=== PATIENT | female | born 2000 | race Caucasian/White ===

== ENCOUNTER 2021-11-06 18:18 | Emergency (ER) | payer OTHER ==
[~2021-11-06] VITALS: Ht 160 cm; Wt 59.0 kg
[2021-11-06 18:38] VITALS: BP 101/62
--- NOTE | 2021-11-06 18:43 | NUR ---
The patient bibs for "Rash X2wks NOT going away". Denies pain. Denies itching. Will continue to monitor the patient.
[2021-11-06] MEDS ORDERED: PRED50TA PO (19:02)
--- NOTE | 2021-11-06 19:06 | NUR ---
Patient discharged to home in stable condition. Written and verbal after care instructions given. Patient verbalizes understanding of instruction.
== END 2021-11-06 19:07 | disposition home or self-care (01) ==
LOC: ER 18:20
DX: T78.40XA Allergy, unspecified, initial encounter (principal); Z88.0 Allergy status to penicillin; Z79.52 Long term (current) use of systemic steroids; X58.XXXA Exposure to other specified factors, initial encounter

== ENCOUNTER 2021-11-14 14:33 | Emergency (ER) | payer OTHER ==
[~2021-11-14] VITALS: Ht 160 cm; Wt 70.3 kg
[~2021-11-14 14:33] MED LIST: PRED50TA PO
--- NOTE | 2021-11-14 14:43 | NUR ---
TO ER BED 10, GENERALIZED RASH, THROAT DISCOMFORT. DIFFICULTY SWALLOWINGX 1 MONTH, FINISHED TAKING PREDNISON 3DAYS AGO, BREATHING EVEN AND NON LABORED, DENIES SOB, CONNECTED TO MONITOR, AWAITING MD DEE
--- NOTE | 2021-11-14 15:00 | NUR ---
DR GARCIA AT BEDSIDE FOR EVAL
--- NOTE | 2021-11-14 15:20 | NUR ---
URINE COLLECTED AND SENT TO LAB
--- NOTE | 2021-11-14 15:30 | NUR ---
REAGENT TENDER AT BEDSIDE FOR BLOOD DRAW
[2021-11-14 15:49] LABS: BASOPHILS % (AUTO) 0.4 % (0.0-2.0); EOSINOPHILS % (AUTO) 0.5 % (0.0-6.0); HEMATOCRIT 42 % (33-45); HEMOGLOBIN 14.1 g/dL (11.5-14.8); LYMPHOCYTES # (AUTO) 1.8 K/uL (0.8-4.8); LYMPHOCYTES % (AUTO) 24.3 % (20.0-44.0); MEAN CORPUSCULAR HGB CONC 34 g/dl (31.0-36.0); MEAN CORPUSCULAR VOLUME 88 fL (82-100); MONOCYTES # (AUTO) 0.5 K/uL (0.1-1.30); MONOCYTES % (AUTO) 7.2 % (2.0-12.0); NEUTROPHILS # (AUTO) 5.1 K/uL (1.8-8.9); NEUTROPHILS % (AUTO) 67.6 % (43.0-81.0); PLATELET COUNT (AUTO) 321 K/uL (150-450); RED BLOOD CELL COUNT(AUTO) 4.77 MIL/uL (4.0-5.2); WHITE BLOOD COUNT (AUTO) 7.6 K/uL (4.3-11.0)
[2021-11-14 15:52] LABS: BILIRUBIN,URINE NEGATIVE (NEGATIVE); COLOR,URINE YELLOW (YELLOW); LEUKOCYTE ESTERASE ,URINE SMALL (NEGATIVE); NITRITE, URINE NEGATIVE (NEGATIVE); PH,URINE 7.5 (5.0-8.0); PROTEIN,URINE NEGATIVE (NEGATIVE); UGLUCOSE NEGATIVE (NEGATIVE)
[2021-11-14 16:05] LABS: BACTERIA,URINE None seen /HPF (None Seen); SQUAMOUS EPITHELIAL CELL,UR Few /HPF (None Seen)
[2021-11-14 16:43] LABS: CALCIUM, SERUM 9.2 mg/dL (8.5-10.1); CREATININE 0.7 mg/dL (0.6-1.3); POTASSIUM 3.5 mmol/L (3.5-5.1)
[2021-11-14 16:55] LABS: ALBUMIN 3.5 g/dL (3.4-5.0); BILIRUBIN,DIRECT 0.3 mg/dL (0.0-0.2); BILIRUBIN,TOTAL 0.9 mg/dL (0.2-1.0); TOTAL PROTEIN, SERUM 8.9 g/dL (6.4-8.2)
[2021-11-14] MEDS ORDERED: IBUP-1957 PO (17:07)
[2021-11-14] MEDS ORDERED: PRED20TA PO (17:07)
[2021-11-14] MEDS ORDERED: AZIT250T13 PO (17:20)
--- NOTE | 2021-11-14 17:20 | NUR ---
Patient discharged to home in stable condition. Written and verbal after care instructions given. Patient verbalizes understanding of instruction.
[2021-11-14 17:21] VITALS: BP 117/65
== END 2021-11-14 17:24 | disposition home or self-care (01) ==
LOC: ER 15:00
DX: L52 Erythema nodosum (principal); Z88.0 Allergy status to penicillin; Z79.899 Other long term (current) drug therapy
CPT/HCPCS: 36415; 80048-TC; 80076-TC; 81001; 83690-TC; 84703-TC; 85025-TC; 85652-TC; 86140-TC; 87040-TC; 87086-TC

== ENCOUNTER 2021-12-08 15:45 | Emergency (ER) | payer OTHER ==
[~2021-12-08] VITALS: Ht 162.6 cm; Wt 70.3 kg
[~2021-12-08 15:45] MED LIST changes: +AZIT250T13 PO; +IBUP-1957 PO; +PRED20TA PO
[2021-12-08 16:20] VITALS: BP 105/73
[2021-12-08] MEDS ORDERED: DOXY-326 PO (17:53)
== END 2021-12-08 18:32 | disposition home or self-care (01) ==
LOC: ER 15:48
DX: R21 Rash and other nonspecific skin eruption (principal); Z88.0 Allergy status to penicillin; Z79.52 Long term (current) use of systemic steroids; Z79.1 Long term (current) use of non-steroidal anti-inflammatories (NSAID); Z79.899 Other long term (current) drug therapy
CPT/HCPCS: 84703-TC; 87081-TC; 87491; 87591